=== PATIENT | female | born 1990 | race Caucasian/White ===

== ENCOUNTER 2017-12-13 22:07 | Emergency (ER) | payer OTHER ==
[2017-12-13 22:47] VITALS: RESP 18
--- NOTE | 2017-12-13 23:19 | ED ---
General Adult HPI - General Chief complaint: Extremity Injury, Upper Stated complaint: post op hand surgery stiffness & swelling Time Seen by Provider: 12/13/17 23:09 Source: patient, RN notes reviewed Mode of arrival: ambulatory Limitations: no limitations - History of Present Illness Initial comments: This is a 27-year-old female who presents to the emergency department with chief complaint of postop right hand pain. Patient states that she had carpal tunnel surgery performed on October [address] Yo Arellano. She states that she received a cortisone injection yesterday and since that time and has had increased pain and decreased range of motion of the right fourth digit. She states that she was told to come to the emergency department if the pain did not subside. Denies any fevers or chills, chest pain shortness of breath, abdominal pain, nausea or vomiting. - Related Data Previous Rx's Medication Instructions Recorded Ibuprofen 600 mg PO Q6HR #20 tablet 12/14/17 Allergies Allergy/AdvReac Type Severity Reaction Status Date / Time No Known Allergies Allergy Verified 12/13/17 23:18 Review of Systems ROS Statement: Those systems with pertinent positive or pertinent negative responses have been documented in the HPI. ROS Other: All systems not noted in ROS Statement are negative. Past Medical History Past Medical History: GERD/Reflux Additional Past Medical History / Comment(s): , LMP SEP 2013. History of Any Multi-Drug Resistant Organisms: None Reported Past Surgical History: Adenoidectomy, Section, Cholecystectomy, Tonsillectomy Additional Past Surgical History / Comment(s): X2, carpal tunnel right hand Past Anesthesia/Blood Transfusion Reactions: Family History of Problems w/ Anesthesia, Postoperative Nausea & Vomiting (PONV) Additional Past Anesthesia/Blood Transfusion Reaction / Comment(s): SISTER-PONV & WOKE UP DURING SURGERY Past Psychological History: Anxiety, Depression Smoking Status: Current every day smoker Past Alcohol Use History: None Reported Past Drug Use History: None Reported - Past Family History Mother Family Medical History: Cancer General Exam - General Exam Comments Initial Comments: General: Awake and alert, well-developed; in no apparent distress. HEENT: Head atraumatic, normocephalic. Pupils are equal, round and reactive to light. Extraocular movements intact. Oropharynx moist without erythema or exudate. Neck: Supple. Normal ROM. Cardiovascular: Regular rate and rhythm. No murmurs, rubs or gallops. Chest symmetrical. Respiratory: Lungs clear to auscultation bilaterally. No wheezes, rales or rhonchi. Normal respiratory effort with no use of accessory muscles. Musculoskeletal: Right fourth digit is in a flexed position. Patient has difficulty straightening the finger and experiences pain while doing so. There is tenderness along the fourth metacarpal. Mild erythema palmar aspect of the hand overlying 4th metacarpal. This area is tender on palpation. Sensation is intact. Radial pulses are 2+ equal palpable bilaterally. Skin: [place], warm and dry without rashes or lesions. Neurological: Alert and oriented x3. CN II-XII grossly intact. Speech is fluent and answers are appropriate. No focal neuro deficits. Psychiatric: Normal mood and affect. No overt signs of depression or anxiety noted. Limitations: no limitations Course Vital Signs 12/13/17 22:43 Temperature 97.8 F Pulse Rate 81 Respiratory 18 Rate Blood Pressure 132/72 O2 Sat by Pulse 99 Oximetry Medical Decision Making - Medical Decision Making This is a 27-year-old female who presents to the emergency department with chief complaint of right hand pain. Patient underwent carpal tunnel surgery on October 23. She states that she developed trigger finger and has been getting cortisone injections into her hand. She states that after today's injection she has had increased pain. There is tenderness along the fourth metacarpal, no signs of infection. Patient's vital signs are stable and she is afebrile. CBC revealed a slightly elevated white count with left shift. ESR was within normal limits. CRP was slightly elevated at 13. Patient will be started and ibuprofen 600 mg. She is to follow-up with [facility] within 1-2 days for further evaluation and treatment. Patient is in agreement with plan. She states that she is ready to go home. All questions answered. - Lab Data Result diagrams: 12/13/17 23:30 12/13/17 23:30 Lab Results 12/13/17 12/13/17 Range/Units 23:30 23:30 WBC 11.4 H (3.8-10.6) k/uL RBC 4.51 (3.80-5.40) m/uL Hgb 12.5 (11.4-16.0) gm/dL Hct 37.7 (34.0-46.0) % MCV 83.4 (80.0-100.0) fL MCH 27.7 (25.0-35.0) pg MCHC 33.2 (31.0-37.0) g/dL RDW 13.4 (11.5-15.5) % Plt Count 260 (150-450) k/uL Neutrophils % 78 % Lymphocytes % 12 % Monocytes % 5 % Eosinophils % 4 % Basophils % 0 % Neutrophils # 8.9 H (1.3-7.7) k/uL Lymphocytes # 1.4 (1.0-4.8) k/uL Monocytes # 0.6 (0-1.0) k/uL Eosinophils # 0.4 (0-0.7) k/uL Basophils # 0.0 (0-0.2) k/uL ESR 5 (0-20) mm/hr Sodium 139 (137-145) mmol/L Potassium 4.1 (3.5-5.1) mmol/L Chloride 107 (98-107) mmol/L Carbon Dioxide 18 L (22-30) mmol/L Anion Gap 14 mmol/L BUN 13 (7-17) mg/dL Creatinine 0.70 (0.52-1.04) mg/dL Est GFR (CKD-EPI)AfAm >90 (>60 ml/min/1.73 sqM) Est GFR (CKD-EPI)NonAf >90 (>60 ml/min/1.73 sqM) Glucose 96 (74-99) mg/dL Calcium 9.2 (8.4-10.2) mg/dL Total Bilirubin 1.0 (0.2-1.3) mg/dL AST 24 (14-36) U/L ALT 26 (9-52) U/L Alkaline Phosphatase 38 (38-126) U/L C-Reactive Protein 13.7 H (<10.0) mg/L Total Protein 6.5 (6.3-8.2) g/dL Albumin 4.0 (3.5-5.0) g/dL Disposition Clinical Impression: Trigger finger, Right hand pain Disposition: HOME SELF-CARE Condition: Good Instructions: Trigger Finger (ED) Additional Instructions: Please follow-up with [facility] within 1-2 days. Please take medications as prescribed. Please follow up with primary care provider within 1- 2 days. Return to emergency department if symptoms should worsen or any concerns arise. Prescriptions: Ibuprofen 600 mg PO Q6HR #20 tablet Is patient prescribed a controlled substance at d/c from ED?: No Referrals: Cornelio Jurado MD [Primary Care Provider] - 1-2 days Time of Disposition: 00:52
[2017-12-13 23:44] LABS: Basophils % (A) 0 %; Eosinophils # (A) 0.4 k/uL (0-0.7); Eosinophils % (A) 4 %; HCT 37.7 % (34.0-46.0); HGB 12.5 gm/dL (11.4-16.0); Lymphocytes # (A) 1.4 k/uL (1.0-4.8); Lymphocytes % (A) 12 %; MCH 27.7 pg (25.0-35.0); MCHC 33.2 g/dL (31.0-37.0); MCV 83.4 fL (80.0-100.0); Mean Platelet Volume 6.5; Monocytes # (A) 0.6 k/uL (0-1.0); Monocytes % (A) 5 %; Neutrophils # (A) 8.9 k/uL (1.3-7.7); Neutrophils % (A) 78 %; Platelet Count 260 k/uL (150-450); RBC 4.51 m/uL (3.80-5.40); RDW 13.4 % (11.5-15.5); WBC 11.4 k/uL (3.8-10.6)
[2017-12-13 23:55] LABS: ALT 26 U/L (9-52); AST 24 U/L (14-36); Alkaline Phosphatase 38 U/L (38-126); Anion Gap 14 mmol/L; Blood Urea Nitrogen 13 mg/dL (7-17); C Reactive Protein 13.7 mg/L (<10.0); Calcium 9.2 mg/dL (8.4-10.2); Carbon Dioxide 18 mmol/L (22-30); Chloride 107 mmol/L (98-107); Glucose 96 mg/dL (74-99); Potassium 4.1 mmol/L (3.5-5.1); Sodium 139 mmol/L (137-145); Total Protein 6.5 g/dL (6.3-8.2)
[2017-12-14 00:33] LABS: Erythrocyte Sedimentation Rate 5 mm/hr (0-20)
[2017-12-14 01:01] VITALS: BP 131/58; PULSE 73; TEMP 98.7
== END 2017-12-14 01:02 | disposition home or self-care (01) ==
LOC: EC 22:07
DX: M65.341 Trigger finger, right ring finger (principal); M79.641 Pain in right hand; F17.200 Nicotine dependence, unspecified, uncomplicated; Z98.890 Other specified postprocedural states
CPT/HCPCS: 36415; 80053; 85025; 85652; 86140; 99283

== ENCOUNTER 2018-08-04 06:33 | Emergency (ER) | payer OTHER ==
[2018-08-04 06:45] VITALS: BP 128/87; PULSE 69; RESP 18; TEMP 98.1
--- NOTE | 2018-08-04 07:18 | ED ---
General Adult HPI - General Chief complaint: Urogenital Stated complaint: Vomiting, Nausea Time Seen by Provider: 08/04/18 07:00 Source: patient, RN notes reviewed Mode of arrival: ambulatory Limitations: no limitations - History of Present Illness Initial comments: This is a 28-year-old female presents to the emergency department complaining of suprapubic abdominal pain. Patient states she's also having some dysuria and urinary urgency. Patient denies any fevers but states she has had the chills occasionally. Patient denies any back pain. Patient denies any nausea vomiting diarrhea. Patient denies any blood in the urine. Patient denies any chest pain difficult breathing shortest breath. Patient states she's not have or had a urinary tract infection in the past. Patient states she just got off her period a few days ago. - Related Data Home Medications Medication Instructions Recorded Confirmed Ibuprofen [Motrin Ib] 400 mg PO Q6H PRN 08/04/18 08/04/18 Previous Rx's Medication Instructions Recorded Sulfamethox-Tmp 800-160Mg [Bactrim 1 each PO Q12HR #14 tab 08/04/18 DS 800-160 mg] Allergies Allergy/AdvReac Type Severity Reaction Status Date / Time No Known Allergies Allergy Verified 08/04/18 07:38 Review of Systems ROS Statement: Those systems with pertinent positive or pertinent negative responses have been documented in the HPI. ROS Other: All systems not noted in ROS Statement are negative. Past Medical History Past Medical History: GERD/Reflux Additional Past Medical History / Comment(s): , LMP SEP 2013. History of Any Multi-Drug Resistant Organisms: None Reported Past Surgical History: Adenoidectomy, Section, Cholecystectomy, Tonsillectomy, Tubal Ligation Additional Past Surgical History / Comment(s): X3, carpal tunnel right hand Past Anesthesia/Blood Transfusion Reactions: Family History of Problems w/ Anesthesia, Postoperative Nausea & Vomiting (PONV) Additional Past Anesthesia/Blood Transfusion Reaction / Comment(s): SISTER-PONV & WOKE UP DURING SURGERY Past Psychological History: Anxiety, Depression Smoking Status: Current every day smoker Past Alcohol Use History: None Reported Past Drug Use History: Marijuana - Past Family History Mother Family Medical History: Cancer General Exam - General Exam Comments Initial Comments: GENERAL: Patient is well-developed and well-nourished. Patient is nontoxic and well- hydrated and is in mild distress. ENT: Neck is soft and supple. No significant lymphadenopathy is noted. Oropharynx is clear. Moist mucous membranes. Neck has full range of motion without eliciting any pain. EYES: The sclera were anicteric and conjunctiva were pink and moist. Extraocular movements were intact and pupils were equal round and reactive to light. Eyelids were unremarkable. PULMONARY: Unlabored respirations. Good breath sounds bilaterally. No audible rales rhonchi or wheezing was noted. CARDIOVASCULAR: There is a regular rate and rhythm without any murmurs gallops or rubs. ABDOMEN: Soft and nontender with normal bowel sounds. No palpable organomegaly was noted. There is no palpable pulsatile mass. SKIN: Skin is clear with no lesions or rashes and otherwise unremarkable. NEUROLOGIC: Patient is alert and oriented x3. Cranial nerves II through XII are grossly intact. Motor and sensory are also intact. Normal speech, volume and content. Symmetrical smile. MUSCULOSKELETAL: Normal extremities with adequate strength and full range of motion. No lower extremity swelling or edema. No calf tenderness. Patient has no CVA tenderness LYMPHATICS: No significant lymphadenopathy is noted PSYCHIATRIC: Normal psychiatric evaluation. Limitations: no limitations Course Vital Signs 08/04/18 06:41 Temperature 98.1 F Pulse Rate 69 Respiratory 18 Rate Blood Pressure 128/87 O2 Sat by Pulse 98 Oximetry Medical Decision Making - Lab Data Lab Results 08/04/18 08/04/18 Range/Units 06:45 06:45 Urine Color Yellow Urine Appearance Cloudy H (Clear) Urine pH 6.0 (5.0-8.0) Ur Specific [place] 1.013 (1.001-1.035) Urine Protein 1+ H (Negative) Urine Glucose (UA) Negative (Negative) Urine Ketones Negative (Negative) Urine Blood Moderate H (Negative) Urine Nitrite Negative (Negative) Urine Bilirubin Negative (Negative) Urine Urobilinogen <2.0 (<2.0) mg/dL Ur Leukocyte Esterase Large H (Negative) Urine RBC 15 H (0-5) /hpf Urine WBC 148 H (0-5) /hpf Ur Squamous Epith Cells 5 H (0-4) /hpf Urine Bacteria Few H (None) /hpf Urine Mucus Rare H (None) /hpf Urine HCG, Qual Not Detected (Not Detectd) Disposition Clinical Impression: Urinary tract infection Disposition: HOME SELF-CARE Condition: Good Instructions: Urinary Tract Infection in Women (ED) Prescriptions: Sulfamethox-Tmp 800-160Mg [Bactrim DS 800-160 mg] 1 each PO Q12HR #14 tab Is patient prescribed a controlled substance at d/c from ED?: No Referrals: Cornelio Jurado MD [Primary Care Provider] - 1-2 days Time of Disposition: 08:02
[2018-08-04 07:54] LABS: Appearance,Urine Cloudy (Clear); Bacteria,Urine Few /hpf; Bilirubin,Urine Negative (Negative); Blood,Urine Moderate (Negative); Color,Urine Yellow; Glucose,Urine (UA) Negative (Negative); Ketones,Urine Negative (Negative); Leukocyte Esterase,Urine Large (Negative); Mucus,Urine Rare /hpf; Nitrite,Urine Negative (Negative); Protein,Urine 1+ (Negative); RBC,Urine 15 /hpf (0-5); Specific Gravity,Urine 1.013 (1.001-1.035); Squamous Epithelial Cell,Urine 5 /hpf (0-4); Urobilinogen,Urine <2.0 mg/dL (<2.0)
[2018-08-04] MEDS ORDERED: cefTRIAXone 1,000 MG VIAL (IM USE) IM STA (08:02)
[2018-08-04] MEDS ORDERED: ONDANSETRON 4 MG ODT STARTER PACK 2 TAB BTL PO STA (08:03)
== END 2018-08-04 08:18 | disposition home or self-care (01) ==
LOC: EC 06:33
DX: N39.0 Urinary tract infection, site not specified (principal); R11.2 Nausea with vomiting, unspecified; F17.200 Nicotine dependence, unspecified, uncomplicated; Z90.49 Acquired absence of other specified parts of digestive tract; Z98.51 Tubal ligation status
CPT/HCPCS: 81001; 81025; 87086; 87077; 87186; 99284; 96372; J0696; S0119

== ENCOUNTER 2019-01-10 16:31 | Emergency (ER) | payer OTHER ==
[2019-01-10 16:43] VITALS: BP 119/64; PULSE 94; RESP 18; TEMP 99
--- NOTE | 2019-01-10 18:10 | ED ---
General Adult HPI - General Chief complaint: Extremity Injury, Upper Stated complaint: swollen right index finger Time Seen by Provider: 01/10/19 17:24 Source: patient Mode of arrival: ambulatory Limitations: no limitations - History of Present Illness Initial comments: Patient is a 28-year-old female presents emergency Department with swelling on the right, second digit PIP joint. Patient reports swelling started yesterday that is slightly increased in severity. Patient reports mild discoloration in the region. No tenderness or erythema reported. Patient denies numbness or tingling. Patient has full range of motion but is limited on flexion due to the swelling, not tenderness. Patient denies taking medication to alleviate the pain. Patient denies trauma to the region. - Related Data Home Medications Medication Instructions Recorded Confirmed Escitalopram [Lexapro] 5 mg PO DAILY 01/10/19 01/10/19 Previous Rx's Medication Instructions Recorded Cephalexin [Keflex] 500 mg PO Q6HR 3 Days #12 cap 01/10/19 Allergies Allergy/AdvReac Type Severity Reaction Status Date / Time No Known Allergies Allergy Verified 01/10/19 17:29 Review of Systems ROS Statement: Those systems with pertinent positive or pertinent negative responses have been documented in the HPI. ROS Other: All systems not noted in ROS Statement are negative. Past Medical History Past Medical History: GERD/Reflux Additional Past Medical History / Comment(s): , LMP SEP 2013. History of Any Multi-Drug Resistant Organisms: None Reported Past Surgical History: Adenoidectomy, Section, Cholecystectomy, Tonsillectomy, Tubal Ligation Additional Past Surgical History / Comment(s): X3, carpal tunnel right hand Past Anesthesia/Blood Transfusion Reactions: Family History of Problems w/ Anesthesia, Postoperative Nausea & Vomiting (PONV) Additional Past Anesthesia/Blood Transfusion Reaction / Comment(s): SISTER-PONV & WOKE UP DURING SURGERY Past Psychological History: Anxiety, Depression Smoking Status: Current every day smoker Past Alcohol Use History: None Reported Past Drug Use History: Marijuana - Past Family History Mother Family Medical History: Cancer General Exam Limitations: no limitations General appearance: alert, in no apparent distress Head exam: Present: atraumatic, normocephalic, normal inspection Eye exam: Present: normal appearance, PERRL, EOMI Pupils: Present: normal accommodation ENT exam: Present: normal exam, mucous membranes moist Neck exam: Present: normal inspection, full ROM Respiratory exam: Present: normal lung sounds bilaterally. Absent: respiratory distress, wheezes, rales Cardiovascular Exam: Present: regular rate, normal rhythm, normal heart sounds Extremities exam: Present: normal inspection, full ROM, normal capillary refill, other (+2 dorsalis pedis and posterior tibialis, bilaterally. Local edema on the right second PIP joint. Limited range of motion due to swelling. Mild skin discoloration.). Absent: tenderness Back exam: Present: normal inspection, full ROM Neurological exam: Present: alert, oriented X3 Psychiatric exam: Present: normal affect, normal mood Skin exam: Present: warm, intact, normal color Course Vital Signs 01/10/19 16:39 Temperature 99.0 F Pulse Rate 94 Respiratory 18 Rate Blood Pressure 119/64 O2 Sat by Pulse 100 Oximetry Procedures - Orthopedic Splinting/Casting Injury #1 Side: right Upper Extremity Injury Location: finger Medical Decision Making - Medical Decision Making Patient is a 28-year-old female presents emergency department with swelling in the right second PIP joint. X-ray of the joint is negative for acute fracture or dislocation. Patient was prescribed by day course of antibiotics prophylactically for possible infection. Finger splint will also be placed. Patient advised to follow with orthopedics. Patient advised to return to emergency department if symptoms worsen. Case discussed with physician. Disposition Clinical Impression: Sprain of finger, right Disposition: HOME SELF-CARE Condition: Stable Additional Instructions: Please see prescribed medication as directed. Please follow with orthopedics. Please return to emergency department if symptoms worsen. Is patient prescribed a controlled substance at d/c from ED?: No Referrals: Cornelio Jurado MD [Primary Care Provider] - 1-2 days Tru Lucero DO [Medical Doctor] - 1-2 days Time of Disposition: 18:44
--- NOTE | 2019-01-10 18:55 | XR ---
PROCEDURE: XR hand limited RT - 2 views DATE AND TIME: 01/10/2019 5:53 PM CLINICAL INDICATION: Pain and swelling right second digit TECHNIQUE: Department protocol COMPARISON: None FINDINGS: There is mild diffuse soft tissue swelling throughout the index finger. No fracture or carlton lignment. Bones and joints are unremarkable. IMPRESSION: Soft tissue swelling.
== END 2019-01-10 19:02 | disposition home or self-care (01) ==
LOC: EC 16:31
DX: S63.630A Sprain of interphalangeal joint of right index finger, initial encounter (principal); F32.9 Major depressive disorder, single episode, unspecified; F41.9 Anxiety disorder, unspecified; F17.200 Nicotine dependence, unspecified, uncomplicated; Z79.899 Other long term (current) drug therapy; X58.XXXA Exposure to other specified factors, initial encounter
CPT/HCPCS: 99283

== ENCOUNTER → 2021-01-21 | Outpatient (CLI) | payer OTHER ==
--- NOTE | 2021-01-21 18:01 | XR ---
EXAMINATION TYPE: XR elbow complete RT DATE OF EXAM: 01/21/2021 COMPARISON: NONE HISTORY: Pulling injury. Pain. TECHNIQUE: 3 views FINDINGS: There is some minimal calcification at the olecranon process of the ulna. I see no fracture nor dislocation. Joint spaces are fairly normal. There is no evidence of joint effusion. IMPRESSION: Calcification could relate to old triceps tendon injury. No acute abnormality of the righ t elbow.
== END | disposition home or self-care (01) ==
LOC: RADXRMAIN 17:13
PROVIDERS: ATTEND Emergency Medicine
DX: M25.521 Pain in right elbow (principal); S59.901A Unspecified injury of right elbow, initial encounter

== ENCOUNTER → 2021-01-29 | Outpatient (CLI) | payer OTHER ==
--- NOTE | 2021-01-30 03:28 | MR ---
EXAMINATION TYPE: MR elbow RT wo con DATE OF EXAM: 01/29/2021 COMPARISON: Normal x-ray 01/21/2021 HISTORY: Right elbow pain and limited range of movement for 2 weeks due to work related injury. Multiplanar multiecho imaging of the right elbow without contrast. Biceps tendon appears intact. The brachialis tendon appears intact. Radial head is intact. I see no e vidence of a fracture. The collateral ligaments appear intact. Triceps tendon appears intact. I see n o bony destructive process. There is no evidence of a bone bruise. The elbow joint spaces are fairly normal. There is mild subcutaneous edema over the posterior olecranon process of the ulna. This is best seen on the proton density sagittal images. There is no discrete fluid collection. IMPRESSION: No evidence of ligament or tendon tear. No evidence of a hematoma. Subcutaneous edema over the posterior proximal ulna. No fracture.
== END | disposition home or self-care (01) ==
LOC: RADMRIMAIN 16:05
PROVIDERS: ATTEND Emergency Medicine
DX: S59.901A Unspecified injury of right elbow, initial encounter (principal); M25.521 Pain in right elbow

== ENCOUNTER → 2021-01-30 | Outpatient (CLI) | payer OTHER ==
--- NOTE | 2021-01-30 15:57 | US ---
EXAMINATION TYPE: US venous doppler duplex UE RT DATE OF EXAM: 01/30/2021 COMPARISON: NONE CLINICAL HISTORY: M79.601 pain in right arm,S53.401D. Right arm pain and swelling SIDE PERFORMED: Right Right Arm: Appears negative for DVT IMPRESSION: No evidence of deep venous thrombosis in the right upper extremity veins.
== END | disposition home or self-care (01) ==
LOC: RADUSWWP 15:12
PROVIDERS: ATTEND Emergency Medicine
DX: M79.601 Pain in right arm (principal); R22.31 Localized swelling, mass and lump, right upper limb

== ENCOUNTER → 2021-01-30 | Outpatient (CLI) | payer OTHER ==
--- NOTE | 2021-01-30 16:20 | XR ---
EXAMINATION TYPE: XR elbow complete RT DATE OF EXAM: 01/30/2021 CLINICAL HISTORY: pain TECHNIQUE: Frontal, lateral and oblique images of the right elbow are obtained. COMPARISON: 01/18/2021 FINDINGS: There is no acute fracture/dislocation evident of the elbow. No abnormal fat pad signs ar e seen. Olecranon spurring may reflect underlying olecranon bursitis. Correlate clinically. IMPRESSION: There is no acute fracture or dislocation of the elbow. ICD 10 NO FRACTURE, INITIAL EVALUATION
== END | disposition home or self-care (01) ==
LOC: RADXRMAIN 15:55
PROVIDERS: ATTEND Emergency Medicine
DX: S53.401D Unspecified sprain of right elbow, subsequent encounter (principal); X58.XXXD Exposure to other specified factors, subsequent encounter

== ENCOUNTER 2021-09-06 09:25 | Emergency (ER) | payer OTHER ==
[2021-09-06 09:37] VITALS: BP 156/95; PULSE 67; RESP 18; TEMP 98.5
[2021-09-06] MEDS ORDERED: PENICILLIN VK 500MG STARTER 4 TAB BTL PO STA (09:54)
[2021-09-06] MEDS ORDERED: ACET/COD 300 MG/30 MG STARTER PACK 6 TAB BTL PO STA (09:54)
--- NOTE | 2021-09-06 09:56 | ED ---
General Adult HPI - General Chief complaint: Dental/Oral Stated complaint: mouth pain Time Seen by Provider: 09/06/21 09:42 Source: patient, RN notes reviewed Mode of arrival: ambulatory Limitations: no limitations - History of Present Illness Initial comments: 31-year-old female presents to the emergency room for dental pain. Patient post have a tooth pulled but the Jain the tooth when trying to pull it. Therefore she had to make an appointment with a oral surgeon. She states this is at the end of September. However today the pain worsened and more per tooth broke off. Patient is concerned she may need antibiotics. She denies any swelling under the tongue. Denies any neck stiffness or difficulty swallowing. Denies any fevers. Patient has no other complaints at this time including shortness of breath, chest pain, abdominal pain, nausea or vomiting, headache, or visual changes. - Related Data Home Medications Medication Instructions Recorded Confirmed Escitalopram [Lexapro] 5 mg PO DAILY 01/10/19 01/10/19 Previous Rx's Medication Instructions Recorded Cephalexin [Keflex] 500 mg PO Q6HR 3 Days #12 cap 01/10/19 Ibuprofen [Motrin] 600 mg PO Q8HR PRN #20 tab 09/06/21 Penicillin V Potassium [Pen Vee K] 500 mg PO Q6H 10 Days #40 tablet 09/06/21 Allergies Allergy/AdvReac Type Severity Reaction Status Date / Time No Known Allergies Allergy Verified 09/06/21 09:33 Review of Systems ROS Statement: Those systems with pertinent positive or pertinent negative responses have been documented in the HPI. ROS Other: All systems not noted in ROS Statement are negative. Past Medical History Past Medical History: GERD/Reflux Additional Past Medical History / Comment(s): , LMP SEP 2013. History of Any Multi-Drug Resistant Organisms: None Reported Past Surgical History: Adenoidectomy, Section, Cholecystectomy, Tonsillectomy, Tubal Ligation Additional Past Surgical History / Comment(s): X3, carpal tunnel right hand Past Anesthesia/Blood Transfusion Reactions: Family History of Problems w/ Anesthesia, Postoperative Nausea & Vomiting (PONV) Additional Past Anesthesia/Blood Transfusion Reaction / Comment(s): SISTER-PONV & WOKE UP DURING SURGERY Past Psychological History: Anxiety, Depression Smoking Status: Current every day smoker Past Alcohol Use History: None Reported Past Drug Use History: Marijuana - Past Family History Mother Family Medical History: Cancer General Exam Limitations: no limitations General appearance: alert, in no apparent distress Head exam: Present: atraumatic Eye exam: Present: normal appearance, PERRL, EOMI. Absent: scleral icterus, conjunctival injection ENT exam: Present: normal exam, mucous membranes moist. Absent: normal oropharynx (Patient has fractured tooth 1. There is no abscess noted. There is no sublingual edema. No trismus.) Neck exam: Present: normal inspection, full ROM. Absent: tenderness Respiratory exam: Present: normal lung sounds bilaterally. Absent: respiratory distress, wheezes Cardiovascular Exam: Present: regular rate, normal rhythm Course Vital Signs 09/06/21 09:33 Temperature 98.5 F Pulse Rate 67 Respiratory 18 Rate Blood Pressure 156/95 O2 Sat by Pulse 98 Oximetry Medical Decision Making - Medical Decision Making Vitals are stable. Patient is well-appearing. HPI and physical exam as documented. Patient does have likely dental infection. He'll be started on antibiotics and pain medication. Will follow up with her doctor. Will return here for any worsening symptoms. Disposition Clinical Impression: Pain, dental Disposition: HOME SELF-CARE Condition: Good Instructions (If sedation given, give patient instructions): Toothache (ED) Additional Instructions: Please take medications as directed. Do not drive while taking Tylenol 3. Follow-up with your doctor. Return to the emergency room for any worsening symptoms. Prescriptions: Ibuprofen [Motrin] 600 mg PO Q8HR PRN #20 tab PRN Reason: Pain Penicillin V Potassium [Pen Vee K] 500 mg PO Q6H 10 Days #40 tablet Is patient prescribed a controlled substance at d/c from ED?: No Referrals: Cornelio Jurado MD [Primary Care Provider] - 1-2 days Time of Disposition: 09:55
== END 2021-09-06 10:09 | disposition home or self-care (01) ==
LOC: EC 09:25
DX: K08.89 Other specified disorders of teeth and supporting structures (principal); K21.9 Gastro-esophageal reflux disease without esophagitis; F32.A Depression, unspecified; F41.9 Anxiety disorder, unspecified; F17.200 Nicotine dependence, unspecified, uncomplicated; F12.90 Cannabis use, unspecified, uncomplicated; Z79.899 Other long term (current) drug therapy
CPT/HCPCS: 99282

== ENCOUNTER 2022-08-30 08:27 | Emergency (ER) | payer OTHER ==
[2022-08-30 08:33] VITALS: TEMP 98.4
[2022-08-30] MEDS ORDERED: ACETAMINOPHEN TAB 325 MG TAB PO STA (09:07)
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
[2022-08-30 10:23] VITALS: BP 114/78; PULSE 78; RESP 18
== END 2022-08-30 10:22 | disposition home or self-care (01) ==
LOC: EC 08:27
DX: S02.2XXA Fracture of nasal bones, initial encounter for closed fracture (principal); K21.9 Gastro-esophageal reflux disease without esophagitis; F32.A Depression, unspecified; F41.9 Anxiety disorder, unspecified; Z79.899 Other long term (current) drug therapy; Y04.0XXA Assault by unarmed brawl or fight, initial encounter
CPT/HCPCS: 70450; 70486; 72125; 99285

== ENCOUNTER 2022-12-23 17:16 | Emergency (ER) | payer OTHER ==
[2022-12-23 17:33] VITALS: RESP 18; TEMP 98.1
[2022-12-23] MEDS ORDERED: SODIUM CHLORIDE 0.9% 1,000 ML IV STA (17:57)
--- NOTE | 2022-12-23 18:06 | ED ---
Dizziness HPI - General Chief Complaint: Dizziness Stated Complaint: sent by PCP Time Seen by Provider: 12/23/22 17:56 Source: patient, RN notes reviewed, old records reviewed Mode of arrival: ambulatory Limitations: no limitations - History of Present Illness Initial Comments: This is a 32-year-old female to the emergency room for evaluation of vertiginous symptoms dizziness sent to ER by primary care for evaluation find cause of dizziness, off-balance, weakness. Patient has no current headache but has had a headache recently, no chest pain or shortness of breath no abdominal pain no change in medications. Patient diagnosis of ovarian cyst the patient takes no medications has no medical or surgical history MD Complaint: dizziness, lightheadedness, near syncope, difficulty walking -: days(s) Timing: gradual onset, intermittent Description: "room spinning", lightheadedness, off-balance, difficulty walking, near-syncope History of Same: No History of Trauma: No Severity: mild Improves With: nothing Worsens With: nothing Associated Symptoms: ataxia, malaise, weakness - Related Data Previous Rx's Medication Instructions Recorded Meclizine [Antivert] 25 mg PO TID #15 tab 12/23/22 Allergies Allergy/AdvReac Type Severity Reaction Status Date / Time No Known Allergies Allergy Verified 12/23/22 20:06 Review of Systems ROS Statement: Those systems with pertinent positive or pertinent negative responses have been documented in the HPI. ROS Other: All systems not noted in ROS Statement are negative. Past Medical History Past Medical History: GERD/Reflux Additional Past Medical History / Comment(s): , LMP SEP 2013. History of Any Multi-Drug Resistant Organisms: None Reported Past Surgical History: Adenoidectomy, Section, Cholecystectomy, Tonsillectomy, Tubal Ligation Additional Past Surgical History / Comment(s): X3, carpal tunnel right hand Past Anesthesia/Blood Transfusion Reactions: Family History of Problems w/ Anesthesia, Postoperative Nausea & Vomiting (PONV) Additional Past Anesthesia/Blood Transfusion Reaction / Comment(s): SISTER-PONV & WOKE UP DURING SURGERY Past Psychological History: Anxiety, Depression Smoking Status: Vaper Past Alcohol Use History: None Reported Past Drug Use History: Marijuana - Past Family History Mother Family Medical History: Cancer General Exam Limitations: no limitations General appearance: alert, in no apparent distress Head exam: Present: atraumatic, normocephalic, normal inspection Eye exam: Present: normal appearance, PERRL, EOMI. Absent: scleral icterus, conjunctival injection, periorbital swelling ENT exam: Present: normal exam, mucous membranes moist Neck exam: Present: normal inspection. Absent: tenderness, meningismus, lymphadenopathy Respiratory exam: Present: normal lung sounds bilaterally. Absent: respiratory distress, wheezes, rales, rhonchi, stridor Cardiovascular Exam: Present: regular rate, normal rhythm, normal heart sounds. Absent: systolic murmur, diastolic murmur, rubs, gallop, clicks GI/Abdominal exam: Present: soft, normal bowel sounds. Absent: distended, tenderness, guarding, rebound, rigid Extremities exam: Present: normal inspection, full ROM, normal capillary refill. Absent: tenderness, pedal edema, joint swelling, calf tenderness Back exam: Present: normal inspection Neurological exam: Present: alert, oriented X3, CN II-XII intact Psychiatric exam: Present: normal affect, normal mood Skin exam: Present: warm, dry, intact, normal color. Absent: rash Course Vital Signs 12/23/22 12/23/22 12/23/22 17:29 18:08 19:12 Temperature 98.1 F Pulse Rate 66 56 L Respiratory 18 18 Rate Blood Pressure 121/77 116/70 Blood Pressure 114/70 [Left Arm Sitting] Blood Pressure 126/72 [Left Arm Standing] Blood Pressure 118/57 [Right Arm Supine] O2 Sat by Pulse 100 100 Oximetry 12/23/22 21:05 Temperature Pulse Rate 59 L Respiratory 18 Rate Blood Pressure 118/69 Blood Pressure [Left Arm Sitting] Blood Pressure [Left Arm Standing] Blood Pressure [Right Arm Supine] O2 Sat by Pulse 99 Oximetry - Reevaluation(s) Reevaluation #1: 12/23/22 19:38 Medical records reviewed Reevaluation #2: 12/23/22 19:38 Patient symptoms are relatively unchanged here in the ER Reevaluation #3: 12/23/22 19:39 Patient informed results questions answered Reevaluation #4: 12/23/22 19:39 Was pt. sent in by a medical professional or institution? @ -no Did you speak to anyone other than the patient for history? @ -no Did you review nursing and triage notes? @ -agree Were old charts reviewed? @ -no Differential Diagnosis? @ -prior EKG interpreted by me (3pts min.)? @ -yes X-rays interpreted by me (1pt min.)? @ -no CT interpreted by me (1pt min.)? @ -no U/S interpreted by me (1pt. min.)? @ -no What testing was considered but not performed? (CT, X-rays, U/S, labs)? Why? @ -no What meds were considered but not given? Why? @ -no Did you discuss the management of the patient with other professionals? @ -no Did you reconcile home meds? @ -no Was smoking cessation discussed for >3mins.? @ -no Was critical care preformed (if so, how long)? @ -no Were there social determinants of health that impacted care today? How? (Homelessness, low income, unemployed, alcoholism, drug addiction, transportation, low edu. Level, literacy, decrease access to med. care, retirement, rehab)? @ -no Was there de-escalation of care discussed even if they declined? (Discuss DNR or withdrawal of care, Hospice)? @ -no What co-morbidities impacted this encounter? (DM, HTN, Smoking, COPD, CAD, Cancer, CVA, Hep., AIDS, mental health diagnosis, sleep apnea, morbid obesity)? @ -none Was patient admitted / discharged? @ -32 female to the emergency department for evaluation of dizziness vertiginous in nature, no acute findings found no significant spinal likely benign positional vertigo patient can be discharged home Discharge Undiagnosed new problem with uncertain prognosis? @ -no Drug Therapy requiring intensive monitoring for toxicity (Heparin, Nitro, Insulin, Cardizem)? @ -no Were any procedures done? @ -no Diagnosis/symptom? @ -Dizziness, vertigo, bradycardia Acute, or Chronic, or Acute on Chronic? @ -no Uncomplicated (without systemic symptoms) or Complicated (systemic symptoms)? @ -uncomplicated Side effects of treatment? @ -no Exacerbation, Progression, or Severe Exacerbation] @ -no Poses a threat to life or bodily function? @ -no Reevaluation #5: 12/23/22 19:39 Differential Dizziness: Benign paroxysmal positional Vertigo, Menieres disease, otitis media, acoustic neuroma, vertebrobasilar insufficiency, cerebellar stroke, encephalitis, hypovolemic, arrhythmia, coronary artery syndrome, anemia, this is not meant to be an all-inclusive list EKG Findings - EKG Comments: EKG Findings:: EKG is sinus bradycardia 58 ID 142 QRS 90 QTC 384 Medical Decision Making - Medical Decision Making 32 female to the emergency department for evaluation of vertiginous symptoms weakness dehydration increased stress level in life. No medical history takes no medications. Patient is improved here in the ER not ataxic normal labs and CT can be discharged home - Lab Data Result diagrams: 12/23/22 18:03 12/23/22 18:03 Lab Results 12/23/22 12/23/22 12/23/22 Range/Units 18:03 18:03 18:03 WBC 7.2 (3.8-10.6) k/uL RBC 4.42 (3.80-5.40) m/uL Hgb 11.7 (11.4-16.0) gm/dL Hct 36.4 (34.0-46.0) % MCV 82.3 (80.0-100.0) fL MCH 26.5 (25.0-35.0) pg MCHC 32.3 (31.0-37.0) g/dL RDW 15.8 H (11.5-15.5) % Plt Count 283 (150-450) k/uL MPV 7.2 Neutrophils % 57 % Lymphocytes % 30 % Monocytes % 5 % Eosinophils % 6 % Basophils % 1 % Neutrophils # 4.1 (1.3-7.7) k/uL Lymphocytes # 2.2 (1.0-4.8) k/uL Monocytes # 0.4 (0-1.0) k/uL Eosinophils # 0.4 (0-0.7) k/uL Basophils # 0.1 (0-0.2) k/uL PT 11.1 (9.0-12.0) sec INR 1.1 (<1.2) APTT 25.5 (22.0-30.0) sec Sodium 140 (137-145) mmol/L Potassium 4.4 (3.5-5.1) mmol/L Chloride 108 H (98-107) mmol/L Carbon Dioxide 20 L (22-30) mmol/L Anion Gap 12 mmol/L BUN 12 (7-17) mg/dL Creatinine 0.83 (0.52-1.04) mg/dL Est GFR (CKD-EPI)AfAm >90 (>60 ml/min/1.73 sqM) Est GFR (CKD-EPI)NonAf >90 (>60 ml/min/1.73 sqM) Glucose 91 (74-99) mg/dL Calcium 9.0 (8.4-10.2) mg/dL Phosphorus 4.1 (2.5-4.5) mg/dL Magnesium 2.0 (1.6-2.3) mg/dL Total Bilirubin 0.6 (0.2-1.3) mg/dL AST 21 (14-36) U/L ALT 18 (4-34) U/L Alkaline Phosphatase 39 (38-126) U/L Troponin I (0.000-0.034) ng/mL NT-Pro-B Natriuret Pep pg/mL Total Protein 6.6 (6.3-8.2) g/dL Albumin 4.1 (3.5-5.0) g/dL 12/23/22 12/23/22 Range/Units 18:03 18:03 WBC (3.8-10.6) k/uL RBC (3.80-5.40) m/uL Hgb (11.4-16.0) gm/dL Hct (34.0-46.0) % MCV (80.0-100.0) fL MCH (25.0-35.0) pg MCHC (31.0-37.0) g/dL RDW (11.5-15.5) % Plt Count (150-450) k/uL MPV Neutrophils % % Lymphocytes % % Monocytes % % Eosinophils % % Basophils % % Neutrophils # (1.3-7.7) k/uL Lymphocytes # (1.0-4.8) k/uL Monocytes # (0-1.0) k/uL Eosinophils # (0-0.7) k/uL Basophils # (0-0.2) k/uL PT (9.0-12.0) sec INR (<1.2) APTT (22.0-30.0) sec Sodium (137-145) mmol/L Potassium (3.5-5.1) mmol/L Chloride (98-107) mmol/L Carbon Dioxide (22-30) mmol/L Anion Gap mmol/L BUN (7-17) mg/dL Creatinine (0.52-1.04) mg/dL Est GFR (CKD-EPI)AfAm (>60 ml/min/1.73 sqM) Est GFR (CKD-EPI)NonAf (>60 ml/min/1.73 sqM) Glucose (74-99) mg/dL Calcium (8.4-10.2) mg/dL Phosphorus (2.5-4.5) mg/dL Magnesium (1.6-2.3) mg/dL Total Bilirubin (0.2-1.3) mg/dL AST (14-36) U/L ALT (4-34) U/L Alkaline Phosphatase (38-126) U/L Troponin I <0.012 (0.000-0.034) ng/mL NT-Pro-B Natriuret Pep 31 pg/mL Total Protein (6.3-8.2) g/dL Albumin (3.5-5.0) g/dL - EKG Data -: EKG Interpreted by Me (EKG shows rate of 58 ID 142 QRS 82 QTC 384) - Radiology Data Radiology results: report reviewed (CT brain is negative for acute disease), i mage reviewed Disposition Clinical Impression: Benign paroxysmal positional vertigo, Vertigo, Bradycardia Disposition: HOME SELF-CARE Condition: Good Instructions (If sedation given, give patient instructions): Dizziness (ED) Prescriptions: Meclizine [Antivert] 25 mg PO TID #15 tab Is patient prescribed a controlled substance at d/c from ED?: No Referrals: Cornelio Jurado MD [Primary Care Provider] - 1-2 days Time of Disposition: 20:20
[2022-12-23 18:23] LABS: Basophils # (A) 0.1 k/uL (0-0.2); Basophils % (A) 1 %; Eosinophils # (A) 0.4 k/uL (0-0.7); Eosinophils % (A) 6 %; HCT 36.4 % (34.0-46.0); HGB 11.7 gm/dL (11.4-16.0); Lymphocytes # (A) 2.2 k/uL (1.0-4.8); Lymphocytes % (A) 30 %; MCH 26.5 pg (25.0-35.0); MCHC 32.3 g/dL (31.0-37.0); MCV 82.3 fL (80.0-100.0); Mean Platelet Volume 7.2; Monocytes # (A) 0.4 k/uL (0-1.0); Monocytes % (A) 5 %; Neutrophils # (A) 4.1 k/uL (1.3-7.7); Neutrophils % (A) 57 %; Platelet Count 283 k/uL (150-450); RBC 4.42 m/uL (3.80-5.40); RDW 15.8 % (11.5-15.5); WBC 7.2 k/uL (3.8-10.6)
[2022-12-23 18:35] LABS: ALT 18 U/L (4-34); AST 21 U/L (14-36); African American GFR (CKD) >90 (>60 ml/min/1.73 sqM); Albumin 4.1 g/dL (3.5-5.0); Alkaline Phosphatase 39 U/L (38-126); Anion Gap 12 mmol/L; Blood Urea Nitrogen 12 mg/dL (7-17); Carbon Dioxide 20 mmol/L (22-30); Chloride 108 mmol/L (98-107); Glucose 91 mg/dL (74-99); Non-African American GFR(CKD) >90 (>60 ml/min/1.73 sqM); Phosphorus 4.1 mg/dL (2.5-4.5); Potassium 4.4 mmol/L (3.5-5.1); Sodium 140 mmol/L (137-145); Total Bilirubin 0.6 mg/dL (0.2-1.3); Total Protein 6.6 g/dL (6.3-8.2)
[2022-12-23 18:36] LABS: INR 1.1 (<1.2); Partial Thromboplastin Time 25.5 sec (22.0-30.0); Prothrombin Time 11.1 sec (9.0-12.0)
--- NOTE | 2022-12-23 19:40 | CT ---
EXAMINATION TYPE: CT brain wo con DATE OF EXAM: 12/23/2022 COMPARISON: 08/30/2022 INDICATION: Vertigo DLP: 1114.4 mGycm, Automated exposure control for dose reduction was used. CONTRAST: None CT of the brain is performed utilizing 3 mm thick sections through the posterior fossa and 3 mm thick sections through the remaining calvarium. Study is performed within 24 hours of arrival to the hosp [place]. No abnormal hyperdensity is present to suggest an acute intracranial hemorrhage. No mass lesion is evident. No acute infarcts are evident. Ventricles and sulci are appropriate for the patient age. Paranasal sinuses and mastoid air cells within the [id number] are clear. IMPRESSIONS: 1. No acute intracranial process. Follow-up MRI can be performed as clinically indicated
[2022-12-23] MEDS ORDERED: ONDANSETRON 4 MG ODT STARTER PACK 2 TAB BTL PO STA (20:19)
[2022-12-23] MEDS ORDERED: MECLIZINE 12.5 MG TAB PO STA (20:19)
[2022-12-23] MEDS ORDERED: ONDANSETRON 4 MG/2 ML VIAL IVP STA (20:19)
[2022-12-23 21:05] VITALS: BP 118/69; PULSE 59
== END 2022-12-23 21:06 | disposition home or self-care (01) ==
LOC: EC 17:16
DX: H81.10 Benign paroxysmal vertigo, unspecified ear (principal); R00.1 Bradycardia, unspecified; F12.90 Cannabis use, unspecified, uncomplicated; F17.290 Nicotine dependence, other tobacco product, uncomplicated; Z86.59 Personal history of other mental and behavioral disorders; Z90.49 Acquired absence of other specified parts of digestive tract
CPT/HCPCS: 36415; 93005; 83880; 80053; 83735; 84100; 84484; 85025; 85610; 85730; 70450; 99284; 96360; S0119

== ENCOUNTER 2023-01-14 08:10 | Emergency (ER) | payer OTHER ==
[2023-01-14 08:16] LABS: Glucose,Whole Blood 126 mg/dL (70-110)
[2023-01-14] MEDS ORDERED: SODIUM CHLORIDE 0.9% 500 ML 500 ML IV STA (08:41)
[2023-01-14 08:49] LABS: Appearance,Urine Clear (Clear); Bilirubin,Urine Negative (Negative); Blood,Urine Negative (Negative); Color,Urine Light Yellow; Glucose,Urine (UA) Negative (Negative); Ketones,Urine Negative (Negative); Leukocyte Esterase,Urine Trace (Negative); Mucus,Urine Rare /hpf; Nitrite,Urine Negative (Negative); Protein,Urine Negative (Negative); RBC,Urine <1 /hpf (0-5); Specific Gravity,Urine 1.007 (1.001-1.035); Squamous Epithelial Cell,Urine <1 /hpf (0-4); Urobilinogen,Urine <2.0 mg/dL (<2.0); WBC,Urine 3 /hpf (0-5)
--- NOTE | 2023-01-14 08:50 | ED ---
General Adult HPI - General Chief complaint: Syncope Stated complaint: syncope Time Seen by Provider: 01/14/23 08:15 Source: patient, RN notes reviewed, old records reviewed Mode of arrival: ambulatory Limitations: no limitations - History of Present Illness Initial comments: This is a 32-year-old female presents emergency Department complaining that she was at work and was mopping and her heart started racing became a little dizzy little sweaty and then she passed out. According to a witness she patient decreased slowly set herself down on her butt and then she almost immediately stood up. Patient states she never expressed any chest pain or shortness of breath or difficulty breathing. Patient states she was recently dizzy about 3 weeks ago and she was diagnosed with vertigo. Patient states she didn't feel vertiginous at this point in time she stated that she just got lightheaded and felt her heart racing and then she doesn't remember anything until she found herself sitting on the floor. Patient denies any injury. Patient denies any recent fever chills or cough per patient denies any headache patient denies any numbness or weakness. Patient denies any visual disturbance. Patient currently states she feels a little warm now but that's it no longer dizzy - Related Data Previous Rx's Medication Instructions Recorded Meclizine [Antivert] 25 mg PO TID #15 tab 12/23/22 Allergies Allergy/AdvReac Type Severity Reaction Status Date / Time No Known Allergies Allergy Verified 01/14/23 08:14 Review of Systems ROS Statement: Those systems with pertinent positive or pertinent negative responses have been documented in the HPI. ROS Other: All systems not noted in ROS Statement are negative. Past Medical History Past Medical History: GERD/Reflux Additional Past Medical History / Comment(s): , LMP SEP 2013. History of Any Multi-Drug Resistant Organisms: None Reported Past Surgical History: Adenoidectomy, Section, Cholecystectomy, Tonsillectomy, Tubal Ligation Additional Past Surgical History / Comment(s): X3, carpal tunnel right hand Past Anesthesia/Blood Transfusion Reactions: Family History of Problems w/ Anesthesia, Postoperative Nausea & Vomiting (PONV) Additional Past Anesthesia/Blood Transfusion Reaction / Comment(s): SISTER-PONV & WOKE UP DURING SURGERY Past Psychological History: Anxiety, Depression Smoking Status: Vaper Past Alcohol Use History: None Reported Past Drug Use History: Marijuana - Past Family History Mother Family Medical History: Cancer General Exam - General Exam Comments Initial Comments: GENERAL: Patient is well-developed and well-nourished. Patient is nontoxic and well- hydrated and is in no acute distress. ENT: Neck is soft and supple. No significant lymphadenopathy is noted. Oropharynx is clear. Moist mucous membranes. Neck has full range of motion without eliciting any pain. EYES: The sclera were anicteric and conjunctiva were pink and moist. Extraocular movements were intact and pupils were equal round and reactive to light. Eyelids were unremarkable. PULMONARY: Unlabored respirations. Good breath sounds bilaterally. No audible rales rhonchi or wheezing was noted. CARDIOVASCULAR: There is a regular rate and rhythm without any murmurs gallops or rubs. ABDOMEN: Soft and nontender with normal bowel sounds. SKIN: Skin is clear with no lesions or rashes and otherwise unremarkable. NEUROLOGIC: Patient is alert and oriented x3. Cranial nerves II through XII are grossly intact. Motor and sensory are also intact. Normal speech, volume and content. Symmetrical smile. MUSCULOSKELETAL: Normal extremities with adequate strength and full range of motion. LYMPHATICS: No significant lymphadenopathy is noted PSYCHIATRIC: Normal psychiatric evaluation. Limitations: no limitations Course Vital Signs 01/14/23 01/14/23 01/14/23 08:11 08:51 10:00 Temperature 98.1 F Pulse Rate 92 68 Respiratory 20 17 Rate Blood Pressure 149/88 121/85 Blood Pressure 140/86 [Sitting] Blood Pressure 142/87 [Standing] Blood Pressure 130/75 [Supine] O2 Sat by Pulse 100 85 L 100 Oximetry Medical Decision Making - Medical Decision Making EKG was interpreted by myself shows a sinus rhythm at 70 bpm [place] interval is on a 47 QRS 101 QT interval 354 QTC is 370. Patient's EKG shows no ST segment luis fernando vation or depression Was pt. sent in by a medical professional or institution (, PA, AUTOMATIC DATA PROCESSING PLANNER, urgent care, hospital, or [facility]...) When possible be specific @ -No Did you speak to anyone other than the patient for history (EMS, parent, family, police, friend...)? What history was obtained from this source @ -No Did you review nursing and triage notes (agree or disagree)? Why? @ -I reviewed and agree with nursing and triage notes Were old charts reviewed (outside hosp., previous admission, EMS record, old EKG, old radiological studies, urgent care reports/EKG's, [facility] records)? Report findings @ -2 prior labs in prior charts and this patient Differential Diagnosis (chest pain, altered mental status, abdominal pain women, abdominal pain men, vaginal bleeding, weakness, fever, dyspnea, syncope, headache, dizziness, GI bleed, back pain, seizure, CVA, palpatations, mental health, musculoskeletal)? @ -Differential Syncope: Valvular disease, hypertrophic cardiomyopathy, pulmonary embolism, tamponade, tachycardia, bradycardia, CT, hypovolemia, hemorrhage, dissection, anemia, intracranial hemorrhage, seizure, hypoglycemia, carbon monoxide poisoning, this is not meant to be an all-inclusive list. EKG interpreted by me (3pts min.). @ -As above X-rays interpreted by me (1pt min.). @ -Chest x-ray shows no acute abnormality CT interpreted by me (1pt min.). @ -None done U/S interpreted by me (1pt. min.). @ -None done What testing was considered but not performed or refused? (CT, X-rays, U/S, labs)? Why? @ -None What meds were considered but not given or refused? Why? @ -None Did you discuss the management of the patient with other professionals (professionals i.e. , PA, AUTOMATIC DATA PROCESSING PLANNER, lab, RT, psych nurse, social work lecturer, sash clamp operator, teacher, service officer, registered nurse hh case manager)? Give summary @ -No Was smoking cessation discussed for >3mins.? @ -No Was critical care preformed (if so, how long)? @ -No Were there social determinants of health that impacted care today? How? (Homelessness, low income, unemployed, alcoholism, drug addiction, transportation, low edu. Level, literacy, decrease access to med. care, longterm, rehab)? @ -No Was there de-escalation of care discussed even if they declined (Discuss DNR or withdrawal of care, Hospice)? DNR status @ -No What co-morbidities impacted this encounter? (DM, HTN, Smoking, COPD, CAD, Cancer, CVA, ARF, Chemo, Hep., AIDS, mental health diagnosis, sleep apnea, morbid obesity)? @ -None Was patient admitted / discharged? Hospital course, mention meds given and route, prescriptions, significant lab abnormalities, going to OR and other pertinent info. @ -Patient blood work came back and showed a glucose of 69 and she was given fluid and felt considerably better. Patient was able to ambulate without problem. Patient no longer felt dizzy and diaphoretic or lightheaded. Patient will follow up with primary medical care doctor Hope to get a a vent monitor placed on her to see if she's having any arrhythmias. Patient was given Undiagnosed new problem with uncertain prognosis? @ -No Drug Therapy requiring intensive monitoring for toxicity (Heparin, Nitro, Insulin, Cardizem)? @ -No Were any procedures done? @ -No Diagnosis/symptom? @ -Syncope Acute, or Chronic, or Acute on Chronic? @ -Acute Uncomplicated (without systemic symptoms) or Complicated (systemic symptoms)? @ -Complicated Side effects of treatment? @ -No Exacerbation, Progression, or Severe Exacerbation? @ -No Poses a threat to life or bodily function? How? (Chest pain, USA, CT, pneumonia, PE, COPD, DKA, ARF, appy, cholecystitis, CVA, Diverticulitis, Homicidal, Suicidal, threat to staff... and all critical care pts) @ -Yes patient could have an arrhythmia. Diagnosis/symptom? @ -Hypoglycemia Acute, or Chronic, or Acute on Chronic? @ -Acute Uncomplicated (without systemic symptoms) or Complicated (systemic symptoms)? @ -Complicated Side effects of treatment? @ -none Exacerbation, Progression, or Severe Exacerbation] @ -no Poses a threat to life or bodily function? @ -no - Lab Data Result diagrams: 01/14/23 08:48 01/14/23 08:48 Lab Results 01/14/23 01/14/23 01/14/23 Range/Units 08:13 08:40 08:48 WBC 6.5 (3.8-10.6) k/uL RBC 4.39 (3.80-5.40) m/uL Hgb 11.8 (11.4-16.0) gm/dL Hct 36.3 (34.0-46.0) % MCV 82.8 (80.0-100.0) fL MCH 26.9 (25.0-35.0) pg MCHC 32.5 (31.0-37.0) g/dL RDW 15.5 (11.5-15.5) % Plt Count 302 (150-450) k/uL MPV 7.4 Neutrophils % 63 % Lymphocytes % 25 % Monocytes % 4 % Eosinophils % 6 % Basophils % 1 % Neutrophils # 4.1 (1.3-7.7) k/uL Lymphocytes # 1.6 (1.0-4.8) k/uL Monocytes # 0.3 (0-1.0) k/uL Eosinophils # 0.4 (0-0.7) k/uL Basophils # 0.0 (0-0.2) k/uL D-Dimer (<0.60) mg/L FEU Sodium (137-145) mmol/L Potassium (3.5-5.1) mmol/L Chloride (98-107) mmol/L Carbon Dioxide (22-30) mmol/L Anion Gap mmol/L BUN (7-17) mg/dL Creatinine (0.52-1.04) mg/dL Est GFR (CKD-EPI)AfAm (>60 ml/min/1.73 sqM) Est GFR (CKD-EPI)NonAf (>60 ml/min/1.73 sqM) Glucose (74-99) mg/dL POC Glucose (mg/dL) 126 H (70-110) mg/dL POC Glu [employer] Captain ID Reardon, Yulisa Calcium (8.4-10.2) mg/dL Magnesium (1.6-2.3) mg/dL Total Bilirubin (0.2-1.3) mg/dL AST (14-36) U/L ALT (4-34) U/L Alkaline Phosphatase (38-126) U/L Troponin I (0.000-0.034) ng/mL Total Protein (6.3-8.2) g/dL Albumin (3.5-5.0) g/dL Urine Color Light Yellow Urine Appearance Clear (Clear) Urine pH 7.0 (5.0-8.0) Ur Specific Carbon 1.007 (1.001-1.035) Urine Protein Negative (Negative) Urine Glucose (UA) Negative (Negative) Urine Ketones Negative (Negative) Urine Blood Negative (Negative) Urine Nitrite Negative (Negative) Urine Bilirubin Negative (Negative) Urine Urobilinogen <2.0 (<2.0) mg/dL Ur Leukocyte Esterase Trace H (Negative) Urine RBC <1 (0-5) /hpf Urine WBC 3 (0-5) /hpf Ur Squamous Epith Cells <1 (0-4) /hpf Urine Mucus Rare H (None) /hpf 01/14/23 01/14/23 01/14/23 Range/Units 08:48 08:48 08:48 WBC (3.8-10.6) k/uL RBC (3.80-5.40) m/uL Hgb (11.4-16.0) gm/dL Hct (34.0-46.0) % MCV (80.0-100.0) fL MCH (25.0-35.0) pg MCHC (31.0-37.0) g/dL RDW (11.5-15.5) % Plt Count (150-450) k/uL MPV Neutrophils % % Lymphocytes % % Monocytes % % Eosinophils % % Basophils % % Neutrophils # (1.3-7.7) k/uL Lymphocytes # (1.0-4.8) k/uL Monocytes # (0-1.0) k/uL Eosinophils # (0-0.7) k/uL Basophils # (0-0.2) k/uL D-Dimer 0.21 (<0.60) mg/L FEU Sodium 138 (137-145) mmol/L Potassium 4.3 (3.5-5.1) mmol/L Chloride 107 (98-107) mmol/L Carbon Dioxide 23 (22-30) mmol/L Anion Gap 8 mmol/L BUN 10 (7-17) mg/dL Creatinine 0.80 (0.52-1.04) mg/dL Est GFR (CKD-EPI)AfAm >90 (>60 ml/min/1.73 sqM) Est GFR (CKD-EPI)NonAf >90 (>60 ml/min/1.73 sqM) Glucose 69 L (74-99) mg/dL POC Glucose (mg/dL) (70-110) mg/dL POC Glu [employer] Captain ID Calcium 9.7 (8.4-10.2) mg/dL Magnesium 1.9 (1.6-2.3) mg/dL Total Bilirubin 0.4 (0.2-1.3) mg/dL AST 19 (14-36) U/L ALT 15 (4-34) U/L Alkaline Phosphatase 49 (38-126) U/L Troponin I <0.012 (0.000-0.034) ng/mL Total Protein 7.2 (6.3-8.2) g/dL Albumin 4.4 (3.5-5.0) g/dL Urine Color Urine Appearance (Clear) Urine pH (5.0-8.0) Ur Specific Carbon (1.001-1.035) Urine Protein (Negative) Urine Glucose (UA) (Negative) Urine Ketones (Negative) Urine Blood (Negative) Urine Nitrite (Negative) Urine Bilirubin (Negative) Urine Urobilinogen (<2.0) mg/dL Ur Leukocyte Esterase (Negative) Urine RBC (0-5) /hpf Urine WBC (0-5) /hpf Ur Squamous Epith Cells (0-4) /hpf Urine Mucus (None) /hpf Disposition Clinical Impression: Syncope, Hypoglycemia Disposition: HOME SELF-CARE Condition: Good Instructions (If sedation given, give patient instructions): Non-diabetic Hypoglycemia (ED), Syncope (ED) Additional Instructions: Patient should eat something in the morning prior to work. Patient should follow-up with a primary medical care doctor and see if she get an event monitor placed. Is patient prescribed a controlled substance at d/c from ED?: No Referrals: Cornelio Jurado MD [Primary Care Provider] - 1-2 days Time of Disposition: 10:20
--- NOTE | 2023-01-14 09:03 | XR ---
EXAMINATION TYPE: XR chest 2V DATE OF EXAM: 01/14/2023 COMPARISON: None HISTORY: 32-year-old female with chest pain TECHNIQUE: PA and lateral views FINDINGS: The cardiomediastinal silhouette, aorta, and pulmonary vasculature are within normal limits. Lungs an d pleural spaces are clear. IMPRESSION: No acute cardiopulmonary process.
[2023-01-14 09:05] LABS: Basophils % (A) 1 %; Eosinophils # (A) 0.4 k/uL (0-0.7); Eosinophils % (A) 6 %; HCT 36.3 % (34.0-46.0); HGB 11.8 gm/dL (11.4-16.0); Lymphocytes # (A) 1.6 k/uL (1.0-4.8); Lymphocytes % (A) 25 %; MCH 26.9 pg (25.0-35.0); MCHC 32.5 g/dL (31.0-37.0); MCV 82.8 fL (80.0-100.0); Mean Platelet Volume 7.4; Monocytes # (A) 0.3 k/uL (0-1.0); Monocytes % (A) 4 %; Neutrophils # (A) 4.1 k/uL (1.3-7.7); Neutrophils % (A) 63 %; Platelet Count 302 k/uL (150-450); RBC 4.39 m/uL (3.80-5.40); RDW 15.5 % (11.5-15.5); WBC 6.5 k/uL (3.8-10.6)
[2023-01-14 09:20] LABS: ALT 15 U/L (4-34); AST 19 U/L (14-36); African American GFR (CKD) >90 (>60 ml/min/1.73 sqM); Albumin 4.4 g/dL (3.5-5.0); Alkaline Phosphatase 49 U/L (38-126); Anion Gap 8 mmol/L; Blood Urea Nitrogen 10 mg/dL (7-17); Calcium 9.7 mg/dL (8.4-10.2); Carbon Dioxide 23 mmol/L (22-30); Chloride 107 mmol/L (98-107); Glucose 69 mg/dL (74-99); Magnesium 1.9 mg/dL (1.6-2.3); Non-African American GFR(CKD) >90 (>60 ml/min/1.73 sqM); Potassium 4.3 mmol/L (3.5-5.1); Sodium 138 mmol/L (137-145); Total Bilirubin 0.4 mg/dL (0.2-1.3); Total Protein 7.2 g/dL (6.3-8.2)
[2023-01-14 10:03] VITALS: RESP 17
[2023-01-14 10:36] LABS: Glucose,Whole Blood 100 mg/dL (70-110)
[2023-01-14 11:08] VITALS: BP 134/87; PULSE 57; TEMP 97.8
== END 2023-01-14 11:11 | disposition home or self-care (01) ==
LOC: EC 08:10
DX: R55 Syncope and collapse (principal); E16.2 Hypoglycemia, unspecified; Z86.59 Personal history of other mental and behavioral disorders; F17.290 Nicotine dependence, other tobacco product, uncomplicated; F12.90 Cannabis use, unspecified, uncomplicated
CPT/HCPCS: 36415; 71046; 80053; 81001; 83735; 84484; 85025; 85379; 93005; 96360; 96361; 99285

== ENCOUNTER → 2023-02-08 | Outpatient (CLI) | payer OTHER ==
--- NOTE | 2023-02-08 10:01 | US ---
EXAMINATION TYPE: US carotid duplex BILAT DATE OF EXAM: 02/08/2023 COMPARISON: NONE CLINICAL INDICATION: Female, 32 years old with history of R55 SYNCOPE; syncope TECHNIQUE: Carotid duplex ultrasound examination. Indirect Doppler criteria was utilized. FINDINGS: EXAM MEASUREMENTS: RIGHT: Peak Systolic Velocity (PSV) cm/sec ----- Right CCA: 99.7 ----- Right ICA: 135.2 ----- Right ECA: 95.8 ICA/CCA ratio: 1.4 RIGHT: End Diastole cm/sec ----- Right CCA: 30.7 ----- Right ICA: 58.3 ----- Right ECA: 15.0 LEFT: Peak Systolic Velocity (PSV) cm/sec ----- Left CCA: 85.9 ----- Left ICA: 112.1 ----- Left ECA: 68.8 ICA/CCA ratio: 1.3 LEFT: End Diastole cm/sec ----- Left CCA: 24.8 ----- Left ICA: 53.0 ----- Left ECA: 15.6 VERTEBRALS (direction of flow): Right Vertebral: Antegrade Left Vertebral: Antegrade Rhythm: Normal COUNTER STITCHER NOTES: No significant stenosis seen IMPRESSION: 1. 50-69% stenosis of the right carotid bifurcation. 2. Less than 50% stenosis of the left carotid bifurcation. Criteria for Assigning % of Stenosis / Diameter reduction (Estimation based on the indirect measurements of the internal carotid artery velocities (ICA PSV). 1. Normal (no stenosis)=ICA PSV < 125 cm/s: ratio < 2.0: ICA EDV<40 cm/s. 2. Less than 50% stenosis=ICA PSV < 125 cm/s: ratio < 2.0: ICA EDV<40 cm/s. 3. 50 to 69% stenosis=ICA PSV of 125 to 230 cm/s: ration 2.0 ? 4.0: ICA EDV 40-100 cm/s. 4. Greater than 70% stenosis to near occlusion= ICA PSV > 230 cm/s: ratio > 4.0: ICA EDV > 100 cm/s. 5. Near occlusion= ICA PSV velocities may be low or undetectable: variable ratio and ICA EDV. 6. Total occlusion=unable to detect flow.
--- NOTE | 2023-02-11 04:21 | EEG ---
DATE OF SERVICE: 02/08/2023 ELECTROENCEPHALOGRAM REPORT PREAMBLE: This is a 32-year-old female who has presented with syncope. CURRENT MEDICATIONS: Tylenol. EEG FINDINGS: This is a 21-channel digital EEG recorded with video component, utilizing 10/20 international system with referential and bipolar montages. Background consists of predominantly low-voltage fast frequency beta activity seen intermixed with some 11 to 12 hertz alpha activity seen in bihemispheric region. Background is posterior dominant and seems to be slightly reactive to eye opening and closing. Photic driving response was seen with some flash frequencies. Different stages of sleep were not clearly seen. No focal or generalized epileptiform activity was seen. EKG channel showed no obvious arrhythmia. IMPRESSION: This is a borderline abnormal EEG due to presence of excessive amount of low- voltage fast frequency beta activity, as can be seen with anxiety states or medication (?benzodiazepine) effect. No focal, lateralized or epileptiform activity was seen. MMROYALL / IJN: [id number] / [facility] CENTERAlina
== END ==
LOC: NEUROMAIN 08:04
PROVIDERS: ATTEND Family Medicine
DX: R55 Syncope and collapse (principal); I65.23 Occlusion and stenosis of bilateral carotid arteries; F17.200 Nicotine dependence, unspecified, uncomplicated
CPT/HCPCS: 93880; 95816

== ENCOUNTER → 2024-02-21 | Outpatient (CLI) | payer OTHER ==
--- NOTE | 2024-02-21 16:59 | US ---
EXAMINATION TYPE: US carotid duplex BILAT DATE OF EXAM: 02/21/2024 COMPARISON: US CLINICAL INDICATION: Female, 33 years old with history of I65.29 OCCLUSION AND STENOSIS OF UNSPECIFIE D CAROT; Stenosis TECHNIQUE: Carotid duplex ultrasound examination. Indirect Doppler criteria was utilized. FINDINGS: EXAM MEASUREMENTS: RIGHT: Peak Systolic Velocity (PSV) cm/sec ----- Right CCA: 109.7 ----- Right ICA: 111.3 ----- Right ECA: 106.0 ICA/CCA ratio: 1.0 RIGHT: End Diastole cm/sec ----- Right CCA: 38.6 ----- Right ICA: 40.2 ----- Right ECA: 28.3 LEFT: Peak Systolic Velocity (PSV) cm/sec ----- Left CCA: 94.3 ----- Left ICA: 109.7 ----- Left ECA: 73.5 ICA/CCA ratio: 1.2 LEFT: End Diastole cm/sec ----- Left CCA: 33.5 ----- Left ICA: 32.1 ----- Left ECA: 21.9 VERTEBRALS (direction of flow): Right Vertebral: Antegrade Left Vertebral: Antegrade Rhythm: Normal MARINE MECHANIC NOTES: No significant stenosis seen IMPRESSION: No evidence for hemodynamically significant stenosis. Criteria for Assigning % of Stenosis / Diameter reduction (Estimation based on the indirect measurements of the internal carotid artery velocities (ICA PSV). 1. Normal (no stenosis)=ICA PSV < 125 cm/s: ratio < 2.0: ICA EDV<40 cm/s. 2. Less than 50% stenosis=ICA PSV < 125 cm/s: ratio < 2.0: ICA EDV<40 cm/s. 3. 50 to 69% stenosis=ICA PSV of 125 to 230 cm/s: ration 2.0 ? 4.0: ICA EDV 40-100 cm/s. 4. Greater than 70% stenosis to near occlusion= ICA PSV > 230 cm/s: ratio > 4.0: ICA EDV > 100 cm/s. 5. Near occlusion= ICA PSV velocities may be low or undetectable: variable ratio and ICA EDV. 6. Total occlusion=unable to detect flow.
== END | disposition home or self-care (01) ==
LOC: RADUSWWP 15:30
PROVIDERS: ATTEND Family Medicine
DX: I65.29 Occlusion and stenosis of unspecified carotid artery (principal)
CPT/HCPCS: 93880